=== PATIENT | male | born 1990 | race African-American/Black ===

== ENCOUNTER 2019-07-22 11:47 | Emergency (ER) | payer BC, SELFPAY ==
--- NOTE | 2019-07-22 13:03 | RAD ---
EXAM: Chest 2 views: HISTORY: Cough and congestion for one month COMPARISON: 08/12/2005 FINDINGS: There is a normal-sized cardiomediastinal silhouette. There is no evidence of consolidation, mass, or pleural effusion. The bones are unremarkable. IMPRESSION: No evidence of acute cardiopulmonary disease
== END 2019-07-22 13:36 | disposition home or self-care (01) ==
LOC: ERS 11:47
DX: R05 Cough (principal); I10 Essential (primary) hypertension; J45.909 Unspecified asthma, uncomplicated; F41.9 Anxiety disorder, unspecified
CPT/HCPCS: 71046